=== PATIENT | male | born 1945 | race Caucasian/White ===

== ENCOUNTER → 2018-09-15 | Outpatient (CLI) | payer MEDICARE, BC ==
[~2018-09-15] MED LIST: FUROSEMIDE40 MG PO; HYDRALAZINE HCL25 MG PO; LIPITOR20 MG PO; LISINOPRIL10 MG PO; METFORMIN HCL500 MG PO; METOPROLOL TART25 MG PO; PROAIR HFA INH8.5 GM INH; QVAR7.3 G1 INH
--- NOTE | 2018-09-15 14:39 | Diagnostic Imaging Report ---
EXAM: Right upper quadrant abdominal ultrasound INDICATION: Abnormal LFTs. COMPARISON: None. TECHNIQUE: Transverse and longitudinal images of the right upper quadrant abdomen were obtained FINDINGS: Liver: Size: 16.6 cm in the right midclavicular line Appearance: Increased echogenicity, smooth contour Mass: No focal masses Gallbladder: No distention, pericholecystic fluid, wall thickening, stone, or reported sonographic Flaherty's sign. Gallbladder wall measures 0.4 cm. Bile Ducts: Intrahepatic Ducts: No dilatation Extrahepatic Ducts: Common bile duct measures 0.4 cm, no dilatation Pancreas: Visualized portions of the pancreatic head, neck and proximal body are normal. Right Kidney: The right kidney measures 10.2 cm without evidence of hydronephrosis or stone. There is a 2.2 x 2.5 x 2 cm well-circumscribed, homogeneous echogenic lesion within the lateral aspect of the kidney. Vessels: Aorta: Visualized portions are normal Inferior Vena Cava: Visualized portions are normal Main Portal Vein: 0.5 cm, normal size with hepatopetal flow. Hepatic vasculature: Right, middle, and left hepatic vein as well as hepatic arterial waveforms are unremarkable. Free Fluid: No ascites or pleural effusion IMPRESSION: Hepatomegaly with hepatic steatosis. 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 Suggest follow-up renal ultrasound in 6 months. Signed by: Dr. Jude Manzo MD on 09/15/2018 2:36 PM
== END ==
LOC: US 13:01
PROVIDERS: ATTEND Family Medicine
DX: R94.5 Abnormal results of liver function studies (principal); R16.0 Hepatomegaly, not elsewhere classified; K76.0 Fatty (change of) liver, not elsewhere classified
CPT/HCPCS: 76705; 93976

== ENCOUNTER 2021-04-30 15:56 | Inpatient (IN) | payer MEDICARE, BC ==
[~2021-04-30] VITALS: Ht 165.1 cm; Wt 60.1 kg
[2021-04-30] MEDS ORDERED: SODIUM CHLORIDE 0.9% 1000ML 1,000 ML ONE (16:37)
[2021-04-30] MEDS ORDERED: ACETAMINOPHEN 650 MG SUPP PR ONE (16:45)
[2021-04-30] MEDS ORDERED: SODIUM CHLORIDE 0.9% 1000ML 1,000 ML IV ONE (16:45)
[2021-04-30] MEDS ORDERED: ACETAMINOPHEN 325 MG SUPP PR ONE (16:45)
[2021-04-30 16:53] LABS: BASOPHILS % 0.2 % (0.0-1.0); EOSINOPHILS # (AUTO) 0.1 (0.0-0.4); EOSINOPHILS % 0.4 % (0.0-6.0); HEMATOCRIT 37.3 % (38.2-49.6); HEMOGLOBIN 11.2 g/dL (14.0-18.0); LYMPHOCYTES # (AUTO) 1.4 (1.0-3.2); LYMPHOCYTES % 9.7 % (18.0-39.1); MEAN CORPUSCULAR HEMOGLOBIN 27.2 pg (28-32); MEAN CORPUSCULAR VOLUME 90.5 fL (81-99); MONOCYTES # (AUTO) 0.7 (0.2-0.8); MONOCYTES % 4.9 % (4.4-11.3); NEUTROPHILS # (AUTO) 12.5 (2.1-6.9); NEUTROPHILS % 84.2 % (38.7-80.0); PLATELET COUNT 326 x10e3/uL (140-360); RED BLOOD COUNT 4.12 x10e6/uL (4.3-5.7); RED CELL DISTRIBUTION WIDTH 17.8 % (11.7-14.4)
[2021-04-30 17:02] LABS: CLARITY,URINE CLOUDY (CLEAR); COLOR,URINE YELLOW (YELLOW); INR 1.25; LEUKOCYTE ESTERASE ,URINE 2+ (NEGATIVE); NITRITE,URINE NEGATIVE (NEGATIVE); PROTEIN,URINE DIPSTICK 1+ (NEGATIVE); PROTHROMBIN TIME 16.7 seconds (11.9-14.5)
[2021-04-30 17:03] LABS: KETONES,URINE NEGATIVE (NEGATIVE); PARTIAL THROMBOPLASTIN TIME 42.4 seconds (23.8-35.5); URINE UROBILINOGEN 1 mg/dL (0.2 - 1)
[2021-04-30 17:07] LABS: BACTERIA,URINE MANY /HPF; EPITHELIAL CELLS,URINE FEW /LPF; WBC,URINE (MAN) 21-50 /HPF (0-5)
[2021-04-30 17:08] LABS: TRIPLE PHOSPHATE CRYSTAL,UR MANY (FEW)
[2021-04-30 17:11] LABS: ALBUMIN 3.3 g/dL (3.5-5.0); ALBUMIN/GLOBULIN RATIO 0.6 (0.8-2.0); ANION GAP 24.5 mmol/L (8-16); CREATININE, SERUM 1.15 mg/dL (0.72-1.25); POTASSIUM 4.5 mmol/L (3.5-5.1)
[2021-04-30 17:12] LABS: CALCIUM 10.4 mg/dL (8.4-10.2)
[2021-04-30] MEDS ORDERED: Vancomycin IV 1 GM in SODIUM CHLORIDE 0.9% 250ML 250 ML IV STA (17:12)
[2021-04-30] MEDS ORDERED: PIPERACILLIN/TAZO 4.5 GM 100 ML IV ONE (17:15)
[2021-04-30 17:17] LABS: CREATINE KINASE MB 2.9 ng/mL (0-5.0)
[2021-04-30] MEDS ORDERED: SODIUM CHLORIDE 0.9% 1000ML 1,000 ML IV SCH (17:45)
[2021-04-30] MEDS ORDERED: KETOROLAC TROMETHAMINE 30 MG/ML VIAL IV STA (18:05)
[2021-04-30] MEDS ORDERED: ACETAMINOPHEN 650 MG SUPP PR PRN (18:45)
[2021-04-30 22:00] VITALS: BP 91/52
[2021-04-30 22:01] VITALS: BP 91/52
[2021-04-30 22:28] VITALS: BP 90/49
[2021-04-30 22:47] VITALS: BP 123/92
[2021-04-30 23:19] VITALS: BP 87/52
[2021-04-30 23:47] VITALS: BP 92/51
[2021-05-01] VITALS (14 sets, daily range): BP systolic 102–129; BP diastolic 53–88
[2021-05-01] MEDS ORDERED: FUROSEMIDE INJ 10 MG/ML 4 ML VIAL IV ONE ×2 (09:00→10:30)
[2021-05-01 09:30] LABS: ABG HCO3 32 mmol/L (22-26); ABG PCO2 45 mmHg (35-45); ABG PH 7.47 (7.35-7.45); ABG PO2 49 mmHg (80-105); ABG TCO2 33
[2021-05-01] MEDS ORDERED: SODIUM CHLORIDE 0.45% 1,000 ML IV ONE (10:30)
[2021-05-01] MEDS: PIPERACILLIN/TAZOBACTAM 3.375 GM in SODIUM CHLORIDE 0.9% 50ML 50 ML IV SCH ×2 (13:45→21:02)
[2021-05-01] MEDS: METOPROLOL TARTRATE 25 MG TAB PO SCH (17:13)
[2021-05-01] MEDS: ENOXAPARIN SOD INJ 40 MG/0.4 ML SYR SC SCH (17:14)
[2021-05-01] MEDS ORDERED: OXYMETAZOLINE HCL 0.05% NAS 1 SPRAY BTL PRN (17:30)
[2021-05-01] MEDS ORDERED: SODIUM CHLORIDE 0.9% 100 ML ONE (20:20)
[2021-05-01] MEDS: ATORVASTATIN 40 MG TAB PO SCH (20:48)
[2021-05-02] VITALS (16 sets, daily range): BP systolic 102–128; BP diastolic 54–77
[2021-05-02 06:03] LABS: BASOPHILS % 0.2 % (0.0-1.0); EOSINOPHILS # (AUTO) 0.1 (0.0-0.4); EOSINOPHILS % 1.3 % (0.0-6.0); HEMATOCRIT 28.4 % (38.2-49.6); HEMOGLOBIN 8.3 g/dL (14.0-18.0); LYMPHOCYTES # (AUTO) 0.7 (1.0-3.2); LYMPHOCYTES % 6.6 % (18.0-39.1); MEAN CORPUSCULAR HGB CONC 29.2 g/dL (31-35); MEAN CORPUSCULAR VOLUME 92.5 fL (81-99); MONOCYTES # (AUTO) 0.5 (0.2-0.8); MONOCYTES % 4.5 % (4.4-11.3); NEUTROPHILS # (AUTO) 9.7 (2.1-6.9); NEUTROPHILS % 86.9 % (38.7-80.0); PLATELET COUNT 223 x10e3/uL (140-360); RED BLOOD COUNT 3.07 x10e6/uL (4.3-5.7); RED CELL DISTRIBUTION WIDTH 17.2 % (11.7-14.4)
[2021-05-02] MEDS: PIPERACILLIN/TAZOBACTAM 3.375 GM in SODIUM CHLORIDE 0.9% 50ML 50 ML IV SCH ×3 (06:03→22:46)
[2021-05-02 06:35] LABS: ALBUMIN 2.5 g/dL (3.5-5.0); ALBUMIN/GLOBULIN RATIO 0.6 (0.8-2.0); ANION GAP 13.8 mmol/L (8-16); CALCIUM 9.7 mg/dL (8.4-10.2); CREATININE, SERUM 0.72 mg/dL (0.72-1.25)
[2021-05-02 06:39] LABS: POTASSIUM 2.8 mmol/L (3.5-5.1)
[2021-05-02] MEDS: METOPROLOL TARTRATE 25 MG TAB PO SCH ×2 (10:21→18:04)
[2021-05-02] MEDS: BALSAM PERU/CASTOR OIL 60 GM OINT...G. TP SCH (10:22)
[2021-05-02] MEDS ORDERED: SODIUM CHLORIDE 0.45% 1,000 ML IV SCH (11:15)
[2021-05-02] MEDS ORDERED: POTASSIUM CHLORIDE 20MEQ/100ML 200 ML IV ONE (11:15)
[2021-05-02] MEDS: ENOXAPARIN SOD INJ 40 MG/0.4 ML SYR SC SCH (18:04)
[2021-05-02] MEDS ORDERED: DEXTROSE 5% 1,000 ML IV SCH (20:00)
[2021-05-02] MEDS: ATORVASTATIN 40 MG TAB PO SCH (21:17)
[2021-05-03] VITALS (10 sets, daily range): BP systolic 108–129; BP diastolic 64–81
[2021-05-03 05:38] LABS: BASOPHILS % 0.2 % (0.0-1.0); EOSINOPHILS # (AUTO) 0.3 (0.0-0.4); EOSINOPHILS % 3.3 % (0.0-6.0); HEMATOCRIT 26.3 % (38.2-49.6); HEMOGLOBIN 7.8 g/dL (14.0-18.0); LYMPHOCYTES # (AUTO) 1.1 (1.0-3.2); LYMPHOCYTES % 12.5 % (18.0-39.1); MEAN CORPUSCULAR HGB CONC 29.7 g/dL (31-35); MONOCYTES # (AUTO) 0.6 (0.2-0.8); MONOCYTES % 6.4 % (4.4-11.3); NEUTROPHILS # (AUTO) 6.6 (2.1-6.9); PLATELET COUNT 210 x10e3/uL (140-360); RED BLOOD COUNT 2.89 x10e6/uL (4.3-5.7); RED CELL DISTRIBUTION WIDTH 17.1 % (11.7-14.4)
[2021-05-03 05:57] LABS: ALBUMIN 2.3 g/dL (3.5-5.0); ALBUMIN/GLOBULIN RATIO 0.6 (0.8-2.0); ANION GAP 11.9 mmol/L (8-16); CREATININE, SERUM 0.66 mg/dL (0.72-1.25); MAGNESIUM 1.4 MG/DL (1.3-2.1)
[2021-05-03 06:04] LABS: POTASSIUM 2.9 mmol/L (3.5-5.1)
[2021-05-03] MEDS: PIPERACILLIN/TAZOBACTAM 3.375 GM in SODIUM CHLORIDE 0.9% 50ML 50 ML IV SCH ×3 (06:17→21:42)
[2021-05-03] MEDS: METOPROLOL TARTRATE 25 MG TAB PO SCH ×2 (08:53→18:04)
[2021-05-03] MEDS ORDERED: POTASSIUM CHLORIDE 20MEQ/100ML 300 ML IV ONE ×2 (09:15→12:30)
[2021-05-03] MEDS ORDERED: FUROSEMIDE INJ 10 MG/ML 4 ML VIAL IV NR (12:30)
[2021-05-03] MEDS: BALSAM PERU/CASTOR OIL 60 GM OINT...G. TP SCH (12:43)
[2021-05-03] MEDS ORDERED: MAGNESIUM SULFATE 2GM/50ML 100 ML IV ONE (13:30)
[2021-05-03] MEDS: ENOXAPARIN SOD INJ 40 MG/0.4 ML SYR SC SCH (18:04)
[2021-05-03] MEDS ORDERED: POTASSIUM CHLORIDE 20MEQ/100ML 100 ML IV ONE (18:30)
[2021-05-03] MEDS: ATORVASTATIN 40 MG TAB PO SCH (21:42)
[2021-05-04] VITALS (13 sets, daily range): BP systolic 103–116; BP diastolic 56–74
[2021-05-04 05:50] LABS: BASOPHILS % 0.3 % (0.0-1.0); EOSINOPHILS # (AUTO) 0.3 (0.0-0.4); EOSINOPHILS % 2.6 % (0.0-6.0); HEMATOCRIT 27.8 % (38.2-49.6); HEMOGLOBIN 8.2 g/dL (14.0-18.0); LYMPHOCYTES % 10.4 % (18.0-39.1); MEAN CORPUSCULAR HEMOGLOBIN 26.9 pg (28-32); MEAN CORPUSCULAR HGB CONC 29.5 g/dL (31-35); MEAN CORPUSCULAR VOLUME 91.1 fL (81-99); MONOCYTES # (AUTO) 0.6 (0.2-0.8); MONOCYTES % 6.8 % (4.4-11.3); NEUTROPHILS # (AUTO) 7.5 (2.1-6.9); NEUTROPHILS % 79.3 % (38.7-80.0); PLATELET COUNT 208 x10e3/uL (140-360); RED BLOOD COUNT 3.05 x10e6/uL (4.3-5.7); RED CELL DISTRIBUTION WIDTH 17.3 % (11.7-14.4)
[2021-05-04 06:22] LABS: ANION GAP 13.7 mmol/L (8-16); CALCIUM 9.1 mg/dL (8.4-10.2); CREATININE, SERUM 0.67 mg/dL (0.72-1.25); POTASSIUM 3.7 mmol/L (3.5-5.1)
[2021-05-04] MEDS: PIPERACILLIN/TAZOBACTAM 3.375 GM in SODIUM CHLORIDE 0.9% 50ML 50 ML IV SCH ×3 (06:37→21:24)
[2021-05-04] MEDS: POTASSIUM CHLORIDE 20 MEQ TAB CR PO SCH (08:24)
[2021-05-04] MEDS: BALSAM PERU/CASTOR OIL 60 GM OINT...G. TP SCH (08:26)
[2021-05-04] MEDS: METOPROLOL TARTRATE 25 MG TAB PO SCH ×2 (08:26→17:00)
[2021-05-04] MEDS: ENOXAPARIN SOD INJ 40 MG/0.4 ML SYR SC SCH (17:00)
[2021-05-04] MEDS: ATORVASTATIN 40 MG TAB PO SCH (21:13)
[2021-05-05] VITALS (7 sets, daily range): BP systolic 108–129; BP diastolic 65–81
[2021-05-05] MEDS: PIPERACILLIN/TAZOBACTAM 3.375 GM in SODIUM CHLORIDE 0.9% 50ML 50 ML IV SCH ×3 (06:27→21:42)
[2021-05-05 07:35] LABS: BASOPHILS % 0.2 % (0.0-1.0); EOSINOPHILS # (AUTO) 0.3 (0.0-0.4); EOSINOPHILS % 3.9 % (0.0-6.0); HEMOGLOBIN 8.1 g/dL (14.0-18.0); LYMPHOCYTES # (AUTO) 0.8 (1.0-3.2); LYMPHOCYTES % 9.6 % (18.0-39.1); MEAN CORPUSCULAR HEMOGLOBIN 26.7 pg (28-32); MEAN CORPUSCULAR HGB CONC 28.9 g/dL (31-35); MEAN CORPUSCULAR VOLUME 92.4 fL (81-99); MONOCYTES # (AUTO) 0.5 (0.2-0.8); MONOCYTES % 6.4 % (4.4-11.3); NEUTROPHILS # (AUTO) 6.7 (2.1-6.9); NEUTROPHILS % 79.3 % (38.7-80.0); PLATELET COUNT 212 x10e3/uL (140-360); RED BLOOD COUNT 3.03 x10e6/uL (4.3-5.7); RED CELL DISTRIBUTION WIDTH 17.2 % (11.7-14.4)
[2021-05-05 07:55] LABS: ALBUMIN 2.4 g/dL (3.5-5.0); ALBUMIN/GLOBULIN RATIO 0.6 (0.8-2.0); ANION GAP 12.8 mmol/L (8-16); CALCIUM 9.4 mg/dL (8.4-10.2); CREATININE, SERUM 0.67 mg/dL (0.72-1.25); POTASSIUM 3.8 mmol/L (3.5-5.1)
[2021-05-05] MEDS: METOPROLOL TARTRATE 25 MG TAB PO SCH ×2 (08:36→16:25)
[2021-05-05] MEDS: POTASSIUM CHLORIDE 20 MEQ TAB CR PO SCH (08:36)
[2021-05-05] MEDS: ENOXAPARIN SOD INJ 40 MG/0.4 ML SYR SC SCH (16:25)
[2021-05-05] MEDS: BALSAM PERU/CASTOR OIL 60 GM OINT...G. TP SCH (17:31)
[2021-05-05] MEDS: ATORVASTATIN 40 MG TAB PO SCH (21:00)
[2021-05-06] VITALS (8 sets, daily range): BP systolic 107–123; BP diastolic 59–78
[2021-05-06] MEDS: PIPERACILLIN/TAZOBACTAM 3.375 GM in SODIUM CHLORIDE 0.9% 50ML 50 ML IV SCH ×3 (05:33→22:58)
[2021-05-06] MEDS: POTASSIUM CHLORIDE 20 MEQ TAB CR PO SCH (09:20)
[2021-05-06] MEDS: METOPROLOL TARTRATE 25 MG TAB PO SCH ×2 (09:20→17:03)
[2021-05-06] MEDS: BALSAM PERU/CASTOR OIL 60 GM OINT...G. TP SCH (10:00)
[2021-05-06] MEDS: ENOXAPARIN SOD INJ 40 MG/0.4 ML SYR SC SCH (17:03)
[2021-05-06] MEDS: ATORVASTATIN 40 MG TAB PO SCH (20:12)
[2021-05-07] VITALS (8 sets, daily range): BP systolic 116–142; BP diastolic 68–90
[2021-05-07] MEDS: PIPERACILLIN/TAZOBACTAM 3.375 GM in SODIUM CHLORIDE 0.9% 50ML 50 ML IV SCH ×3 (06:02→21:54)
[2021-05-07] MEDS: POTASSIUM CHLORIDE 20 MEQ TAB CR PO SCH (08:49)
[2021-05-07] MEDS: METOPROLOL TARTRATE 25 MG TAB PO SCH ×2 (09:14→16:57)
[2021-05-07] MEDS: BALSAM PERU/CASTOR OIL 60 GM OINT...G. TP SCH (13:21)
[2021-05-07] MEDS: ENOXAPARIN SOD INJ 40 MG/0.4 ML SYR SC SCH (16:57)
[2021-05-07] MEDS: ATORVASTATIN 40 MG TAB PO SCH (20:44)
[2021-05-08] VITALS (8 sets, daily range): BP systolic 116–144; BP diastolic 66–80
[2021-05-08 05:04] LABS: BASOPHILS % 0.3 % (0.0-1.0); EOSINOPHILS # (AUTO) 0.3 (0.0-0.4); EOSINOPHILS % 4.2 % (0.0-6.0); HEMATOCRIT 27.2 % (38.2-49.6); HEMOGLOBIN 7.8 g/dL (14.0-18.0); LYMPHOCYTES # (AUTO) 0.9 (1.0-3.2); MEAN CORPUSCULAR HEMOGLOBIN 26.3 pg (28-32); MEAN CORPUSCULAR HGB CONC 28.7 g/dL (31-35); MEAN CORPUSCULAR VOLUME 91.6 fL (81-99); MONOCYTES # (AUTO) 0.5 (0.2-0.8); MONOCYTES % 7.2 % (4.4-11.3); NEUTROPHILS # (AUTO) 4.8 (2.1-6.9); NEUTROPHILS % 72.3 % (38.7-80.0); PLATELET COUNT 251 x10e3/uL (140-360); RED BLOOD COUNT 2.97 x10e6/uL (4.3-5.7)
[2021-05-08] MEDS: PIPERACILLIN/TAZOBACTAM 3.375 GM in SODIUM CHLORIDE 0.9% 50ML 50 ML IV SCH ×3 (05:07→22:39)
[2021-05-08 05:31] LABS: ANION GAP 13.1 mmol/L (8-16); CALCIUM 9.1 mg/dL (8.4-10.2); CREATININE, SERUM 0.56 mg/dL (0.72-1.25); POTASSIUM 4.1 mmol/L (3.5-5.1)
[2021-05-08] MEDS: POTASSIUM CHLORIDE 20 MEQ TAB CR PO SCH (08:19)
[2021-05-08] MEDS: METOPROLOL TARTRATE 25 MG TAB PO SCH ×2 (08:19→17:00)
[2021-05-08] MEDS: BALSAM PERU/CASTOR OIL 60 GM OINT...G. TP SCH (08:20)
[2021-05-08] MEDS ORDERED: MIDAZOLAM HCL 2 MG/2 ML VIAL ONE (12:47)
[2021-05-08] MEDS ORDERED: FENTANYL CITRATE/PF 100MCG/2 ML INJ ONE (12:47)
[2021-05-08] MEDS ORDERED: BENZOCAINE/TETRACAINE/BUTAMBEN AERO SPRAY 56 GM CAN ONE (18:52)
[2021-05-08] MEDS ORDERED: Morphine 2mg Syringe 2 MG/ML SYR IV PRN (20:15)
[2021-05-08] MEDS: ATORVASTATIN 40 MG TAB PO SCH (21:00)
[2021-05-09] VITALS: BP 127/78
[2021-05-09 04:00] VITALS: BP 141/72
[2021-05-09] MEDS: PIPERACILLIN/TAZOBACTAM 3.375 GM in SODIUM CHLORIDE 0.9% 50ML 50 ML IV SCH ×2 (06:28→14:00)
[2021-05-09] MEDS ORDERED: SODIUM CHLORIDE 0.9% 1000ML 1,000 ML IV SCH (07:30)
[2021-05-09 08:00] VITALS: BP 156/83
[2021-05-09 08:30] VITALS: BP 156/83
[2021-05-09] MEDS: METOPROLOL TARTRATE 25 MG TAB PO SCH (09:00)
[2021-05-09] MEDS: POTASSIUM CHLORIDE 20 MEQ TAB CR PO SCH (09:00)
[2021-05-09] MEDS: BALSAM PERU/CASTOR OIL 60 GM OINT...G. TP SCH (09:00)
[2021-05-09 12:00] VITALS: BP 153/71
== END 2021-05-09 15:26 | DRG 871 ==
LOC: ER 16:00 → ERHOLD 18:09 → ICU 22:00 → MED/SURG2 05-04 15:24
PROC: 02HV33Z Insertion of Infusion Device into Superior Vena Cava, Percutaneous Approach (ICD-10-PCS; 2021-05-01)
PROC: 5A0935A Assistance with Respiratory Ventilation, Less than 24 Consecutive Hours, High Flow/Velocity Cannula (ICD-10-PCS; 2021-05-01)
PROC: 0DH63UZ Insertion of Feeding Device into Stomach, Percutaneous Approach (ICD-10-PCS; principal; 2021-05-08 16:30)
DX: A41.9 Sepsis, unspecified organism (principal); G93.41 Metabolic encephalopathy; J69.0 Pneumonitis due to inhalation of food and vomit; J15.6 Pneumonia due to other Gram-negative bacteria; J96.01 Acute respiratory failure with hypoxia; N39.0 Urinary tract infection, site not specified; N17.9 Acute kidney failure, unspecified; E87.0 Hyperosmolality and hypernatremia; E44.0 Moderate protein-calorie malnutrition; I50.22 Chronic systolic (congestive) heart failure; I48.91 Unspecified atrial fibrillation; F02.80 Dementia in other diseases classified elsewhere, unspecified severity, without behavioral disturbance, psychotic disturbance, mood disturbance, and anxiety; E11.42 Type 2 diabetes mellitus with diabetic polyneuropathy; G20 Parkinson's disease; R13.12 Dysphagia, oropharyngeal phase; K20.90 Esophagitis, unspecified without bleeding; K44.9 Diaphragmatic hernia without obstruction or gangrene; K29.70 Gastritis, unspecified, without bleeding; Z91.041 Radiographic dye allergy status; Z20.822 Contact with and (suspected) exposure to COVID-19; Z86.73 Personal history of transient ischemic attack (TIA), and cerebral infarction without residual deficits; I25.10 Atherosclerotic heart disease of native coronary artery without angina pectoris; E87.6 Hypokalemia; D64.9 Anemia, unspecified; I11.0 Hypertensive heart disease with heart failure; D17.1 Benign lipomatous neoplasm of skin and subcutaneous tissue of trunk; E83.42 Hypomagnesemia; D63.8 Anemia in other chronic diseases classified elsewhere; I35.0 Nonrheumatic aortic (valve) stenosis; Z79.84 Long term (current) use of oral hypoglycemic drugs; N18.30 Chronic kidney disease, stage 3 unspecified; Z68.22 Body mass index [BMI] 22.0-22.9, adult; E03.9 Hypothyroidism, unspecified; Z98.61 Coronary angioplasty status
CPT/HCPCS: 36415; 36569; 36600; 43246; 71045; 71046; 74230; 80048; 80053; 81001; 82550; 82553; 82805; 82948; 83605; 83735; 83880; 84484; 85025; 85610; 85730; 87040; 87086; 93005; 93306; 94640; 94799; 99251; 99284; J1650; J1885; J1940; J2250; J2543; J3010; J3370; J3475; J3480; J7030; J7050; J7070; U0002

== ENCOUNTER 2021-05-13 08:25 | Emergency (ER) | payer MEDICARE, BC ==
[~2021-05-13] VITALS: Ht 165.1 cm; Wt 59.9 kg
[2021-05-13] MEDS ORDERED: SODIUM CHLORIDE 0.9% 500ML 500 ML IV ONE (09:00)
[2021-05-13 09:24] LABS: BASOPHILS % 0.2 % (0.0-1.0); EOSINOPHILS # (AUTO) 0.3 (0.0-0.4); EOSINOPHILS % 2.2 % (0.0-6.0); HEMATOCRIT 28.9 % (38.2-49.6); HEMOGLOBIN 8.6 g/dL (14.0-18.0); LYMPHOCYTES # (AUTO) 1.7 (1.0-3.2); LYMPHOCYTES % 14.5 % (18.0-39.1); MEAN CORPUSCULAR HGB CONC 29.8 g/dL (31-35); MEAN CORPUSCULAR VOLUME 90.9 fL (81-99); MONOCYTES # (AUTO) 0.7 (0.2-0.8); MONOCYTES % 6.2 % (4.4-11.3); NEUTROPHILS # (AUTO) 8.9 (2.1-6.9); NEUTROPHILS % 76.3 % (38.7-80.0); PLATELET COUNT 350 x10e3/uL (140-360); RED BLOOD COUNT 3.18 x10e6/uL (4.3-5.7); RED CELL DISTRIBUTION WIDTH 19.5 % (11.7-14.4)
[2021-05-13] MEDS ORDERED: Vancomycin IV 1 GM in SODIUM CHLORIDE 0.9% 250ML 250 ML IV ONE (09:30)
[2021-05-13] MEDS ORDERED: PIPERACILLIN/TAZOBACTAM 3.375 GM in SODIUM CHLORIDE 0.9% 50ML 50 ML IV ONE (09:30)
[2021-05-13 09:41] LABS: CLARITY,URINE CLEAR (CLEAR); COLOR,URINE YELLOW (YELLOW); KETONES,URINE NEGATIVE (NEGATIVE); LEUKOCYTE ESTERASE ,URINE TRACE (NEGATIVE); NITRITE,URINE NEGATIVE (NEGATIVE); PROTEIN,URINE DIPSTICK 1+ (NEGATIVE)
[2021-05-13 09:42] LABS: URINE UROBILINOGEN >=8 mg/dL (0.2 - 1)
[2021-05-13 09:50] LABS: INR 1.26; PROTHROMBIN TIME 16.8 seconds (11.9-14.5)
[2021-05-13 09:51] LABS: PARTIAL THROMBOPLASTIN TIME 41.3 seconds (23.8-35.5)
[2021-05-13 09:52] LABS: ALBUMIN 2.5 g/dL (3.5-5.0); ALBUMIN/GLOBULIN RATIO 0.5 (0.8-2.0); ANION GAP 13.1 mmol/L (8-16); CALCIUM 10.2 mg/dL (8.4-10.2); CREATININE, SERUM 0.75 mg/dL (0.72-1.25); MAGNESIUM 1.9 MG/DL (1.3-2.1); POTASSIUM 4.1 mmol/L (3.5-5.1)
[2021-05-13 09:53] LABS: CREATINE KINASE MB 0.9 ng/mL (0-5.0)
[2021-05-13 10:02] LABS: BACTERIA,URINE FEW /HPF; EPITHELIAL CELLS,URINE RARE /LPF; RBC,URINE 0-5 /HPF (0-5)
== END 2021-05-13 13:58 | disposition short-term general hospital (02) ==
LOC: ER 08:28
DX: J69.0 Pneumonitis due to inhalation of food and vomit (principal); I62.01 Nontraumatic acute subdural hemorrhage; I62.03 Nontraumatic chronic subdural hemorrhage; I10 Essential (primary) hypertension; I48.91 Unspecified atrial fibrillation; E03.9 Hypothyroidism, unspecified; I25.10 Atherosclerotic heart disease of native coronary artery without angina pectoris; G20 Parkinson's disease; F03.90 Unspecified dementia, unspecified severity, without behavioral disturbance, psychotic disturbance, mood disturbance, and anxiety; Z91.041 Radiographic dye allergy status; Z20.822 Contact with and (suspected) exposure to COVID-19; Z79.02 Long term (current) use of antithrombotics/antiplatelets; Z79.84 Long term (current) use of oral hypoglycemic drugs; Z79.899 Other long term (current) drug therapy
CPT/HCPCS: 36415; 70450; 71045; 80053; 81001; 82550; 82553; 83605; 83735; 83880; 84484; 85025; 85610; 85730; 86850; 86900; 87040; 87086; 93005; 99251; 99285; J2543; J3370; J7040; J7050; U0002

== ENCOUNTER 2021-06-02 19:08 | Inpatient (IN) | payer MEDICARE, BC ==
[~2021-06-02] VITALS: Ht 165.1 cm; Wt 63.4 kg
[2021-06-02] MEDS ORDERED: SODIUM CHLORIDE 0.9% 1000ML 1,000 ML IV STA ×2 (19:14→21:29)
[2021-06-02] MEDS ORDERED: CEFTRIAXONE 1 GM in SODIUM CHLORIDE 0.9% 50ML 50 ML IV STA (19:14)
[2021-06-02] MEDS ORDERED: DILTIAZEM HCL 5 MG/ML 5 ML VIAL IV STA ×2 (19:35→23:09)
[2021-06-02 19:39] LABS: CLARITY,URINE SL CLOUDY (CLEAR); COLOR,URINE STRAW (YELLOW); KETONES,URINE NEGATIVE (NEGATIVE); LEUKOCYTE ESTERASE ,URINE NEGATIVE (NEGATIVE); NITRITE,URINE NEGATIVE (NEGATIVE); PROTEIN,URINE DIPSTICK TRACE (NEGATIVE); URINE UROBILINOGEN 2 mg/dL (0.2 - 1)
[2021-06-02 19:50] LABS: BACTERIA,URINE MODERATE /HPF; WBC,URINE (MAN) 0-5 /HPF (0-5)
[2021-06-02 19:51] LABS: BASOPHILS % 0.3 % (0.0-1.0); EOSINOPHILS # (AUTO) 0.2 (0.0-0.4); EOSINOPHILS % 1.2 % (0.0-6.0); HEMATOCRIT 30.9 % (38.2-49.6); LYMPHOCYTES # (AUTO) 1.1 (1.0-3.2); LYMPHOCYTES % 8.3 % (18.0-39.1); MEAN CORPUSCULAR HEMOGLOBIN 26.4 pg (28-32); MEAN CORPUSCULAR HGB CONC 29.1 g/dL (31-35); MEAN CORPUSCULAR VOLUME 90.6 fL (81-99); MONOCYTES # (AUTO) 0.9 (0.2-0.8); MONOCYTES % 7.4 % (4.4-11.3); NEUTROPHILS # (AUTO) 10.2 (2.1-6.9); NEUTROPHILS % 80.5 % (38.7-80.0); PLATELET COUNT 362 x10e3/uL (140-360); RED BLOOD COUNT 3.41 x10e6/uL (4.3-5.7); RED CELL DISTRIBUTION WIDTH 21.5 % (11.7-14.4)
[2021-06-02] MEDS ORDERED: ACETAMINOPHEN 650 MG SUPP PR ONE ×2 (19:54→20:00)
[2021-06-02 20:00] LABS: INR 1.33; PROTHROMBIN TIME 17.4 seconds (11.9-14.5)
[2021-06-02 20:01] LABS: PARTIAL THROMBOPLASTIN TIME 47.9 seconds (23.8-35.5)
[2021-06-02 20:16] LABS: B-TYPE NATRIURETIC PEPTIDE2 106.3 pg/mL (0-100)
[2021-06-02 20:53] LABS: ALBUMIN 1.7 g/dL (3.5-5.0); ALBUMIN/GLOBULIN RATIO 0.4 (0.8-2.0); ANION GAP 16.1 mmol/L (8-16); CALCIUM 8.7 mg/dL (8.4-10.2); CREATININE, SERUM 0.64 mg/dL (0.72-1.25); POTASSIUM 4.1 mmol/L (3.5-5.1)
[2021-06-02 20:59] LABS: CREATINE KINASE MB 1.1 ng/mL (0-5.0)
[2021-06-02] MEDS ORDERED: KETOROLAC TROMETHAMINE 30 MG/ML VIAL IV STA (21:30)
[2021-06-02] MEDS ORDERED: DILTIAZEM HCL VIAL 5 ML ONE (22:51)
[2021-06-02] MEDS: SODIUM CHLORIDE 0.9% 1000ML 1,000 ML IV SCH (23:41)
[2021-06-03] VITALS (9 sets, daily range): BP systolic 90–133; BP diastolic 57–101
[2021-06-03] MEDS: SODIUM CHLORIDE 0.9% 1000ML 1,000 ML IV SCH ×3 (06:34→23:30)
[2021-06-03 07:19] LABS: BASOPHILS % 0.4 % (0.0-1.0); EOSINOPHILS # (AUTO) 0.1 (0.0-0.4); HEMATOCRIT 26.7 % (38.2-49.6); HEMOGLOBIN 7.8 g/dL (14.0-18.0); LYMPHOCYTES # (AUTO) 1.3 (1.0-3.2); LYMPHOCYTES % 12.8 % (18.0-39.1); MEAN CORPUSCULAR HEMOGLOBIN 26.6 pg (28-32); MEAN CORPUSCULAR HGB CONC 29.2 g/dL (31-35); MEAN CORPUSCULAR VOLUME 91.1 fL (81-99); MONOCYTES # (AUTO) 0.8 (0.2-0.8); MONOCYTES % 7.8 % (4.4-11.3); NEUTROPHILS # (AUTO) 7.4 (2.1-6.9); NEUTROPHILS % 74.3 % (38.7-80.0); PLATELET COUNT 277 x10e3/uL (140-360); RED BLOOD COUNT 2.93 x10e6/uL (4.3-5.7); RED CELL DISTRIBUTION WIDTH 21.1 % (11.7-14.4)
[2021-06-03 07:38] LABS: ANION GAP 13.5 mmol/L (8-16); CREATININE, SERUM 0.57 mg/dL (0.72-1.25); POTASSIUM 4.5 mmol/L (3.5-5.1)
[2021-06-03 08:03] LABS: CREATINE KINASE MB 1.3 ng/mL (0-5.0)
[2021-06-03] MEDS ORDERED: FOLIC ACID0.4 MG PO (14:16)
[2021-06-03] MEDS ORDERED: ACETAMINOPHEN325 M1 PO (14:16)
[2021-06-03] MEDS ORDERED: FLOMAX0.4 MG PO (14:16)
[2021-06-03] MEDS ORDERED: VITAMIN B-1100 M1 PO (14:28)
[2021-06-03] MEDS ORDERED: SENNA8.6 MG PO (14:28)
[2021-06-03] MEDS ORDERED: ARICEPT10 MG PO (14:28)
[2021-06-03] MEDS ORDERED: LOSARTAN POTASS25 MG PO (14:28)
[2021-06-03] MEDS ORDERED: MULTI-VITAMIN1 EACH PO (14:28)
[2021-06-03] MEDS ORDERED: TYLENOL325 MG PO (14:28)
[2021-06-03] MEDS ORDERED: REMERON15 MG PO (14:28)
[2021-06-03] MEDS ORDERED: SYMBICORT 80-10.2 GM INH (14:28)
[2021-06-03] MEDS ORDERED: VITAMIN B-121000 MCG PO (14:28)
[2021-06-03] MEDS ORDERED: REFRESH PLUS1 EACH (14:28)
[2021-06-03 15:20] LABS: CREATINE KINASE MB 2.1 ng/mL (0-5.0)
[2021-06-03] MEDS ORDERED: JEVITY237 ML (19:38)
[2021-06-03] MEDS ORDERED: SODIUM CHLORIDE 0.9% 50ML 50 ML ONE (20:45)
[2021-06-03] MEDS: ACETAMINOPHEN 325 MG TAB PO PRN (20:45)
[2021-06-03] MEDS ORDERED: CEFTRIAXONE 1 GM VIAL IM SCH (22:00)
[2021-06-04] VITALS (9 sets, daily range): BP systolic 100–120; BP diastolic 53–70
[2021-06-04] MEDS ORDERED: GLUCERNA 1.5 C237 ML (01:18)
[2021-06-04] MEDS ORDERED: NON-FORMULARY MEDICATION (Carboxymethylcellulose Sodium (Refresh Plus) 1 DROP) SCH (06:00)
[2021-06-04] MEDS: BUDESONIDE/FORMOTEROL FUMARATE 80/4.5MCG 6.9 GM INH AEROSOL IH SCH ×2 (06:28→17:24)
[2021-06-04] MEDS: SODIUM CHLORIDE 0.9% 1000ML 1,000 ML IV SCH ×3 (08:36→23:52)
[2021-06-04] MEDS: HYDRALAZINE HCL 25 MG TAB PO SCH ×3 (08:38→23:55)
[2021-06-04] MEDS: METOPROLOL TARTRATE 25 MG TAB PO SCH ×2 (08:39→17:00)
[2021-06-04] MEDS: LOSARTAN POTASSIUM 25 MG TAB PO SCH (08:39)
[2021-06-04] MEDS: MULTIVITAMINS/MINERALS TAB PO SCH (08:40)
[2021-06-04] MEDS: TAMSULOSIN HCL 0.4 MG CAP PO SCH (08:40)
[2021-06-04] MEDS: SENNOSIDES 8.6 MG TAB PO SCH ×2 (08:40→17:03)
[2021-06-04] MEDS: THIAMINE HCL 100 MG TAB PO SCH (08:40)
[2021-06-04] MEDS: CYANOCOBALAMIN 1,000 MCG TAB PO SCH (08:40)
[2021-06-04] MEDS: FOLIC ACID 1 MG TAB PO SCH (08:40)
[2021-06-04] MEDS: ARTIFICIAL TEARS (OPTH) 15 ML BTL OP SCH ×2 (13:46→23:51)
[2021-06-04] MEDS: PIPERACILLIN/TAZOBACTAM 3.375 GM in SODIUM CHLORIDE 0.9% 50ML 50 ML IV SCH ×2 (17:21→23:53)
[2021-06-04] MEDS ORDERED: METOPROLOL TARTRATE INJ 1 MG/ML VIAL IV ONE (21:00)
[2021-06-04] MEDS: MIRTAZAPINE 15 MG TAB PO SCH (22:01)
[2021-06-04] MEDS: DONEPEZIL HCL 5 MG TAB PO SCH (22:01)
[2021-06-05] VITALS (9 sets, daily range): BP systolic 111–136; BP diastolic 61–76
[2021-06-05] MEDS: PIPERACILLIN/TAZOBACTAM 3.375 GM in SODIUM CHLORIDE 0.9% 50ML 50 ML IV SCH ×3 (05:59→17:38)
[2021-06-05] MEDS: ARTIFICIAL TEARS (OPTH) 15 ML BTL OP SCH ×3 (05:59→21:58)
[2021-06-05] MEDS: SODIUM CHLORIDE 0.9% 1000ML 1,000 ML IV SCH ×2 (09:07→16:23)
[2021-06-05] MEDS: BUDESONIDE/FORMOTEROL FUMARATE 80/4.5MCG 6.9 GM INH AEROSOL IH SCH ×2 (09:07→17:37)
[2021-06-05] MEDS: MULTIVITAMINS/MINERALS TAB PO SCH (09:08)
[2021-06-05] MEDS: LOSARTAN POTASSIUM 25 MG TAB PO SCH (09:08)
[2021-06-05] MEDS: METOPROLOL TARTRATE 25 MG TAB PO SCH ×2 (09:08→17:38)
[2021-06-05] MEDS: FOLIC ACID 1 MG TAB PO SCH (09:08)
[2021-06-05] MEDS: TAMSULOSIN HCL 0.4 MG CAP PO SCH (09:08)
[2021-06-05] MEDS: HYDRALAZINE HCL 25 MG TAB PO SCH ×3 (09:08→21:58)
[2021-06-05] MEDS: COLLAGENASE 5 GM TUBE TOP SCH (09:09)
[2021-06-05] MEDS: BALSAM PERU/CASTOR OIL 60 GM OINT...G. TP SCH (09:09)
[2021-06-05] MEDS: SENNOSIDES 8.6 MG TAB PO SCH ×2 (09:09→17:38)
[2021-06-05] MEDS: THIAMINE HCL 100 MG TAB PO SCH (09:09)
[2021-06-05] MEDS: CYANOCOBALAMIN 1,000 MCG TAB PO SCH (09:09)
[2021-06-05] MEDS: AZITHROMYCIN 250 MG TAB PO SCH (21:57)
[2021-06-05] MEDS: DONEPEZIL HCL 5 MG TAB PO SCH (21:58)
[2021-06-05] MEDS: MIRTAZAPINE 15 MG TAB PO SCH (21:58)
[2021-06-06] VITALS (8 sets, daily range): BP systolic 86–143; BP diastolic 54–106
[2021-06-06] MEDS: SODIUM CHLORIDE 0.9% 1000ML 1,000 ML IV SCH ×2 (01:10→08:32)
[2021-06-06] MEDS: PIPERACILLIN/TAZOBACTAM 3.375 GM in SODIUM CHLORIDE 0.9% 50ML 50 ML IV SCH ×4 (01:11→17:11)
[2021-06-06] MEDS: ARTIFICIAL TEARS (OPTH) 15 ML BTL OP SCH ×3 (05:53→21:47)
[2021-06-06] MEDS: TAMSULOSIN HCL 0.4 MG CAP PO SCH (08:32)
[2021-06-06] MEDS: FOLIC ACID 1 MG TAB PO SCH (08:32)
[2021-06-06] MEDS: CYANOCOBALAMIN 1,000 MCG TAB PO SCH (08:32)
[2021-06-06] MEDS: SENNOSIDES 8.6 MG TAB PO SCH ×2 (08:32→17:10)
[2021-06-06] MEDS: HYDRALAZINE HCL 25 MG TAB PO SCH ×3 (08:32→21:46)
[2021-06-06] MEDS: MULTIVITAMINS/MINERALS TAB PO SCH (08:32)
[2021-06-06] MEDS: LOSARTAN POTASSIUM 25 MG TAB PO SCH (08:32)
[2021-06-06] MEDS: BALSAM PERU/CASTOR OIL 60 GM OINT...G. TP SCH (08:33)
[2021-06-06] MEDS: METOPROLOL TARTRATE 25 MG TAB PO SCH ×2 (08:34→17:11)
[2021-06-06] MEDS: THIAMINE HCL 100 MG TAB PO SCH (08:35)
[2021-06-06] MEDS: COLLAGENASE 5 GM TUBE TOP SCH (09:00)
[2021-06-06] MEDS: BUDESONIDE/FORMOTEROL FUMARATE 80/4.5MCG 6.9 GM INH AEROSOL IH SCH ×2 (11:37→21:47)
[2021-06-06] MEDS: MIRTAZAPINE 15 MG TAB PO SCH (21:47)
[2021-06-06] MEDS: AZITHROMYCIN 250 MG TAB PO SCH (21:47)
[2021-06-06] MEDS: DONEPEZIL HCL 5 MG TAB PO SCH (21:47)
[2021-06-07] VITALS (8 sets, daily range): BP systolic 88–133; BP diastolic 58–79
[2021-06-07] MEDS: PIPERACILLIN/TAZOBACTAM 3.375 GM in SODIUM CHLORIDE 0.9% 50ML 50 ML IV SCH ×5 (00:26→23:36)
[2021-06-07] MEDS: BUDESONIDE/FORMOTEROL FUMARATE 80/4.5MCG 6.9 GM INH AEROSOL IH SCH ×2 (06:52→19:58)
[2021-06-07] MEDS: ARTIFICIAL TEARS (OPTH) 15 ML BTL OP SCH ×3 (06:54→22:16)
[2021-06-07] MEDS: TAMSULOSIN HCL 0.4 MG CAP PO SCH (11:14)
[2021-06-07] MEDS: LOSARTAN POTASSIUM 25 MG TAB PO SCH (11:14)
[2021-06-07] MEDS: FOLIC ACID 1 MG TAB PO SCH (11:14)
[2021-06-07] MEDS: CYANOCOBALAMIN 1,000 MCG TAB PO SCH (11:15)
[2021-06-07] MEDS: SENNOSIDES 8.6 MG TAB PO SCH ×2 (11:15→17:31)
[2021-06-07] MEDS: MULTIVITAMINS/MINERALS TAB PO SCH (11:15)
[2021-06-07] MEDS: METOPROLOL TARTRATE 25 MG TAB PO SCH ×2 (11:15→17:32)
[2021-06-07] MEDS: BALSAM PERU/CASTOR OIL 60 GM OINT...G. TP SCH (11:15)
[2021-06-07] MEDS: COLLAGENASE 5 GM TUBE TOP SCH (11:15)
[2021-06-07] MEDS: HYDRALAZINE HCL 25 MG TAB PO SCH ×3 (11:16→20:43)
[2021-06-07] MEDS: THIAMINE HCL 100 MG TAB PO SCH (11:16)
[2021-06-07 15:33] LABS: BASOPHILS % 0.2 % (0.0-1.0); EOSINOPHILS # (AUTO) 0.3 (0.0-0.4); EOSINOPHILS % 2.7 % (0.0-6.0); HEMATOCRIT 23.7 % (38.2-49.6); LYMPHOCYTES # (AUTO) 0.9 (1.0-3.2); MEAN CORPUSCULAR HEMOGLOBIN 26.5 pg (28-32); MEAN CORPUSCULAR HGB CONC 29.5 g/dL (31-35); MEAN CORPUSCULAR VOLUME 89.8 fL (81-99); MONOCYTES # (AUTO) 0.5 (0.2-0.8); MONOCYTES % 5.2 % (4.4-11.3); NEUTROPHILS # (AUTO) 7.9 (2.1-6.9); NEUTROPHILS % 75.8 % (38.7-80.0); PLATELET COUNT 372 x10e3/uL (140-360); RED BLOOD COUNT 2.64 x10e6/uL (4.3-5.7); RED CELL DISTRIBUTION WIDTH 21.2 % (11.7-14.4)
[2021-06-07 15:57] LABS: ALBUMIN 1.5 g/dL (3.5-5.0); ALBUMIN/GLOBULIN RATIO 0.4 (0.8-2.0); ANION GAP 12.2 mmol/L (8-16); CALCIUM 8.6 mg/dL (8.4-10.2); CREATININE, SERUM 0.49 mg/dL (0.72-1.25); POTASSIUM 4.2 mmol/L (3.5-5.1)
[2021-06-07 16:31] LABS: BAND NEUTROPHILS % (MANUAL) 1 %; EOSINOPHILS % (MANUAL) 2 % (0-7); LYMPHOCYTES % (MANUAL) 12 % (19-48); METAMYELOCYTES % (MANUAL) 2 % (0-0); MONOCYTES % (MANUAL) 9 % (3.4-9.0); NEUTROPHILS % (MANUAL) 73 % (40-74); PROMYELOCYTES % (MANUAL) 1 % (0-0)
[2021-06-07 16:33] LABS: PLATELET ESTIMATE ADEQUATE; PLATELET MORPHOLOGY COMMENT NORMAL
[2021-06-07 16:34] LABS: RBC MORPHOLOGY COMMENT NORMAL
[2021-06-07 16:36] LABS: HYPOCHROMASIA SLIGHT
[2021-06-07] MEDS: ACETAMINOPHEN 325 MG TAB PO PRN (19:35)
[2021-06-07] MEDS: DONEPEZIL HCL 5 MG TAB PO SCH (20:43)
[2021-06-07] MEDS: MIRTAZAPINE 15 MG TAB PO SCH (20:43)
[2021-06-08] VITALS (7 sets, daily range): BP systolic 100–142; BP diastolic 60–81
[2021-06-08] MEDS: PIPERACILLIN/TAZOBACTAM 3.375 GM in SODIUM CHLORIDE 0.9% 50ML 50 ML IV SCH ×3 (05:17→18:17)
[2021-06-08] MEDS: ARTIFICIAL TEARS (OPTH) 15 ML BTL OP SCH ×3 (05:17→21:23)
[2021-06-08] MEDS: FOLIC ACID 1 MG TAB PO SCH (09:21)
[2021-06-08] MEDS: TAMSULOSIN HCL 0.4 MG CAP PO SCH (09:21)
[2021-06-08] MEDS: CYANOCOBALAMIN 1,000 MCG TAB PO SCH (09:22)
[2021-06-08] MEDS: MULTIVITAMINS/MINERALS TAB PO SCH (09:22)
[2021-06-08] MEDS: THIAMINE HCL 100 MG TAB PO SCH (09:22)
[2021-06-08] MEDS: COLLAGENASE 5 GM TUBE TOP SCH (09:22)
[2021-06-08] MEDS: SENNOSIDES 8.6 MG TAB PO SCH ×2 (09:22→18:14)
[2021-06-08] MEDS: BALSAM PERU/CASTOR OIL 60 GM OINT...G. TP SCH (09:22)
[2021-06-08] MEDS: METOPROLOL TARTRATE 25 MG TAB PO SCH ×2 (09:24→17:00)
[2021-06-08] MEDS: HYDRALAZINE HCL 25 MG TAB PO SCH ×3 (09:24→20:53)
[2021-06-08] MEDS: LOSARTAN POTASSIUM 25 MG TAB PO SCH (09:24)
[2021-06-08] MEDS ORDERED: ACETAMINOPHEN 325 MG TAB PO STA (10:42)
[2021-06-08] MEDS ORDERED: DIPHENHYDRAMINE HCL INJ 50 MG/ML VIAL IV ONE (10:45)
[2021-06-08] MEDS ORDERED: SODIUM CHLORIDE 0.9% 250ML 250 ML IV ONE (10:45)
[2021-06-08] MEDS: FUROSEMIDE INJ 10 MG/ML 2 ML VIAL IV PRN ×2 (18:00→18:17)
[2021-06-08] MEDS: DONEPEZIL HCL 5 MG TAB PO SCH (20:53)
[2021-06-08] MEDS: MIRTAZAPINE 15 MG TAB PO SCH (20:53)
[2021-06-09] VITALS (8 sets, daily range): BP systolic 99–148; BP diastolic 62–94
[2021-06-09] MEDS: PIPERACILLIN/TAZOBACTAM 3.375 GM in SODIUM CHLORIDE 0.9% 50ML 50 ML IV SCH ×4 (00:20→17:44)
[2021-06-09 06:08] LABS: BASOPHILS # (AUTO) 0.1 (0.0-0.1); BASOPHILS % 0.5 % (0.0-1.0); EOSINOPHILS # (AUTO) 0.3 (0.0-0.4); EOSINOPHILS % 2.1 % (0.0-6.0); HEMATOCRIT 30.2 % (38.2-49.6); LYMPHOCYTES # (AUTO) 1.8 (1.0-3.2); MEAN CORPUSCULAR HEMOGLOBIN 26.9 pg (28-32); MEAN CORPUSCULAR HGB CONC 29.8 g/dL (31-35); MEAN CORPUSCULAR VOLUME 90.1 fL (81-99); MONOCYTES # (AUTO) 0.8 (0.2-0.8); MONOCYTES % 5.9 % (4.4-11.3); NEUTROPHILS # (AUTO) 8.8 (2.1-6.9); NEUTROPHILS % 69.5 % (38.7-80.0); PLATELET COUNT 427 x10e3/uL (140-360); RED BLOOD COUNT 3.35 x10e6/uL (4.3-5.7); RED CELL DISTRIBUTION WIDTH 19.9 % (11.7-14.4)
[2021-06-09] MEDS: ARTIFICIAL TEARS (OPTH) 15 ML BTL OP SCH ×3 (06:21→22:00)
[2021-06-09 06:55] LABS: ANION GAP 12.4 mmol/L (8-16); CREATININE, SERUM 0.55 mg/dL (0.72-1.25); POTASSIUM 4.4 mmol/L (3.5-5.1)
[2021-06-09] MEDS: BUDESONIDE/FORMOTEROL FUMARATE 80/4.5MCG 6.9 GM INH AEROSOL IH SCH ×2 (07:30→20:38)
[2021-06-09 08:18] LABS: LYMPHOCYTES % (MANUAL) 16 % (19-48); MONOCYTES % (MANUAL) 9 % (3.4-9.0); MYELOCYTES % (MANUAL) 1 % (0-0); NEUTROPHILS % (MANUAL) 74 % (40-74); PLATELET ESTIMATE ADEQUATE; PLATELET MORPHOLOGY COMMENT NORMAL; RBC MORPHOLOGY COMMENT NORMAL
[2021-06-09] MEDS: TAMSULOSIN HCL 0.4 MG CAP PO SCH (09:32)
[2021-06-09] MEDS: FOLIC ACID 1 MG TAB PO SCH (09:32)
[2021-06-09] MEDS: BALSAM PERU/CASTOR OIL 60 GM OINT...G. TP SCH (09:33)
[2021-06-09] MEDS: MULTIVITAMINS/MINERALS TAB PO SCH (09:33)
[2021-06-09] MEDS: THIAMINE HCL 100 MG TAB PO SCH (09:33)
[2021-06-09] MEDS: SENNOSIDES 8.6 MG TAB PO SCH ×2 (09:33→17:43)
[2021-06-09] MEDS: METOPROLOL TARTRATE 25 MG TAB PO SCH ×2 (09:33→17:43)
[2021-06-09] MEDS: COLLAGENASE 5 GM TUBE TOP SCH (09:33)
[2021-06-09] MEDS: CYANOCOBALAMIN 1,000 MCG TAB PO SCH (09:33)
[2021-06-09] MEDS: HYDRALAZINE HCL 25 MG TAB PO SCH ×3 (09:34→21:00)
[2021-06-09] MEDS: LOSARTAN POTASSIUM 25 MG TAB PO SCH (09:34)
[2021-06-09] MEDS: ACETAMINOPHEN 325 MG TAB PO PRN (15:53)
[2021-06-09] MEDS: MIRTAZAPINE 15 MG TAB PO SCH (21:00)
[2021-06-09] MEDS: DONEPEZIL HCL 5 MG TAB PO SCH (21:00)
[2021-06-10] VITALS (7 sets, daily range): BP systolic 100–119; BP diastolic 60–76
[2021-06-10] MEDS: PIPERACILLIN/TAZOBACTAM 3.375 GM in SODIUM CHLORIDE 0.9% 50ML 50 ML IV SCH ×4 (00:25→17:43)
[2021-06-10] MEDS: ARTIFICIAL TEARS (OPTH) 15 ML BTL OP SCH ×3 (05:55→22:05)
[2021-06-10] MEDS: ACETAMINOPHEN 325 MG TAB PO PRN ×2 (05:57→16:45)
[2021-06-10] MEDS: BUDESONIDE/FORMOTEROL FUMARATE 80/4.5MCG 6.9 GM INH AEROSOL IH SCH ×2 (07:10→19:35)
[2021-06-10] MEDS: HYDRALAZINE HCL 25 MG TAB PO SCH ×2 (09:59→16:44)
[2021-06-10] MEDS: THIAMINE HCL 100 MG TAB PO SCH (10:00)
[2021-06-10] MEDS: TAMSULOSIN HCL 0.4 MG CAP PO SCH (10:00)
[2021-06-10] MEDS: METOPROLOL TARTRATE 25 MG TAB PO SCH ×2 (10:00→16:44)
[2021-06-10] MEDS: SENNOSIDES 8.6 MG TAB PO SCH ×2 (10:00→16:44)
[2021-06-10] MEDS: MULTIVITAMINS/MINERALS TAB PO SCH (10:00)
[2021-06-10] MEDS: COLLAGENASE 5 GM TUBE TOP SCH (10:00)
[2021-06-10] MEDS: CYANOCOBALAMIN 1,000 MCG TAB PO SCH (10:00)
[2021-06-10] MEDS: BALSAM PERU/CASTOR OIL 60 GM OINT...G. TP SCH (10:00)
[2021-06-10] MEDS: FOLIC ACID 1 MG TAB PO SCH (10:00)
[2021-06-10] MEDS: LOSARTAN POTASSIUM 25 MG TAB PO SCH (10:00)
[2021-06-10] MEDS: DONEPEZIL HCL 5 MG TAB PO SCH (22:05)
[2021-06-10] MEDS: MIRTAZAPINE 15 MG TAB PO SCH (22:05)
[2021-06-11] VITALS (7 sets, daily range): BP systolic 110–133; BP diastolic 49–79
[2021-06-11] MEDS: PIPERACILLIN/TAZOBACTAM 3.375 GM in SODIUM CHLORIDE 0.9% 50ML 50 ML IV SCH ×4 (00:45→16:33)
[2021-06-11] MEDS: METOPROLOL TARTRATE 25 MG TAB PO SCH ×3 (00:45→12:56)
[2021-06-11 05:30] LABS: BASOPHILS % 0.2 % (0.0-1.0); EOSINOPHILS # (AUTO) 0.2 (0.0-0.4); EOSINOPHILS % 2.3 % (0.0-6.0); HEMATOCRIT 27.2 % (38.2-49.6); HEMOGLOBIN 8.1 g/dL (14.0-18.0); LYMPHOCYTES % 10.1 % (18.0-39.1); MEAN CORPUSCULAR HEMOGLOBIN 26.9 pg (28-32); MEAN CORPUSCULAR HGB CONC 29.8 g/dL (31-35); MEAN CORPUSCULAR VOLUME 90.4 fL (81-99); MONOCYTES # (AUTO) 0.8 (0.2-0.8); MONOCYTES % 7.8 % (4.4-11.3); NEUTROPHILS # (AUTO) 7.6 (2.1-6.9); NEUTROPHILS % 75.2 % (38.7-80.0); PLATELET COUNT 389 x10e3/uL (140-360); RED BLOOD COUNT 3.01 x10e6/uL (4.3-5.7); RED CELL DISTRIBUTION WIDTH 20.2 % (11.7-14.4)
[2021-06-11 05:52] LABS: ANION GAP 10.9 mmol/L (8-16); CALCIUM 9.2 mg/dL (8.4-10.2); CREATININE, SERUM 0.5 mg/dL (0.72-1.25); POTASSIUM 3.9 mmol/L (3.5-5.1)
[2021-06-11] MEDS: ARTIFICIAL TEARS (OPTH) 15 ML BTL OP SCH ×2 (05:52→13:25)
[2021-06-11] MEDS: BUDESONIDE/FORMOTEROL FUMARATE 80/4.5MCG 6.9 GM INH AEROSOL IH SCH ×2 (08:22→19:11)
[2021-06-11] MEDS ORDERED: FUROSEMIDE INJ 10 MG/ML 4 ML VIAL IV SCH (09:00)
[2021-06-11] MEDS: COLLAGENASE 5 GM TUBE TOP SCH (09:01)
[2021-06-11] MEDS: SENNOSIDES 8.6 MG TAB PO SCH ×2 (09:01→16:33)
[2021-06-11] MEDS: MULTIVITAMINS/MINERALS TAB PO SCH (09:01)
[2021-06-11] MEDS: BALSAM PERU/CASTOR OIL 60 GM OINT...G. TP SCH (09:01)
[2021-06-11] MEDS: TAMSULOSIN HCL 0.4 MG CAP PO SCH (09:01)
[2021-06-11] MEDS: FOLIC ACID 1 MG TAB PO SCH (09:01)
[2021-06-11] MEDS: CYANOCOBALAMIN 1,000 MCG TAB PO SCH (09:01)
[2021-06-11] MEDS: LOSARTAN POTASSIUM 25 MG TAB PO SCH (09:01)
[2021-06-11] MEDS: THIAMINE HCL 100 MG TAB PO SCH (09:01)
[2021-06-11 09:53] LABS: ANISOCYTOSIS MODERATE; HYPOCHROMASIA MODERATE; MICROCYTOSIS SLIGHT; PLATELET ESTIMATE ADEQUATE; PLATELET MORPHOLOGY COMMENT NORMAL; RBC MORPHOLOGY COMMENT ABNORMAL
[2021-06-11] MEDS ORDERED: APIXABAN 5 MG TABLET PO SCH (17:00)
[2021-06-11] MEDS ORDERED: FUROSEMIDE 40 MG TAB PO SCH (17:00)
[2021-06-11] MEDS ORDERED: METOPROLOL TARTRATE 50 MG TAB PO SCH (17:00)
== END 2021-06-11 20:34 | DRG 871 ==
LOC: ER 19:19 → ERHOLD 23:18 → MED/SURG3 06-03 08:29
PROC: 02HV33Z Insertion of Infusion Device into Superior Vena Cava, Percutaneous Approach (ICD-10-PCS; principal; 2021-06-03)
PROC: 30243N1 Transfusion of Nonautologous Red Blood Cells into Central Vein, Percutaneous Approach (ICD-10-PCS; 2021-06-08)
DX: A41.9 Sepsis, unspecified organism (principal); J69.0 Pneumonitis due to inhalation of food and vomit; J96.01 Acute respiratory failure with hypoxia; I50.23 Acute on chronic systolic (congestive) heart failure; E27.40 Unspecified adrenocortical insufficiency; E44.0 Moderate protein-calorie malnutrition; I35.0 Nonrheumatic aortic (valve) stenosis; I25.10 Atherosclerotic heart disease of native coronary artery without angina pectoris; I11.0 Hypertensive heart disease with heart failure; F03.90 Unspecified dementia, unspecified severity, without behavioral disturbance, psychotic disturbance, mood disturbance, and anxiety; E03.9 Hypothyroidism, unspecified; N31.9 Neuromuscular dysfunction of bladder, unspecified; Z86.73 Personal history of transient ischemic attack (TIA), and cerebral infarction without residual deficits; G20 Parkinson's disease; G62.9 Polyneuropathy, unspecified; N40.0 Benign prostatic hyperplasia without lower urinary tract symptoms; R00.1 Bradycardia, unspecified; Z68.23 Body mass index [BMI] 23.0-23.9, adult; R65.20 Severe sepsis without septic shock; Z74.01 Bed confinement status
CPT/HCPCS: 36415; 36569; 71045; 71046; 74230; 80048; 80053; 81001; 82270; 82550; 82553; 82948; 83605; 83880; 84484; 85025; 85610; 85730; 86850; 86900; 86920; 87040; 87086; 93005; 94799; 96361; 99251; 99285; J0456; J0696; J1200; J1885; J1940; J2543; J3411; J7030; J7050; P9016; U0002

== ENCOUNTER 2021-07-28 12:15 | Inpatient (IN) | payer MEDICARE, BC ==
[~2021-07-28] VITALS: Ht 165.1 cm; Wt 63.0 kg
[~2021-07-28 12:15] MED LIST changes: +ACETAMINOPHEN325 M1 PO; +ARICEPT10 MG PO; +FLOMAX0.4 MG PO; +FOLIC ACID0.4 MG PO; +GLUCERNA 1.5 C237 ML; +JEVITY237 ML; +LOSARTAN POTASS25 MG PO; +MULTI-VITAMIN1 EACH PO; +REFRESH PLUS1 EACH; +REMERON15 MG PO; +SENNA8.6 MG PO; +SYMBICORT 80-10.2 GM INH; +TYLENOL325 MG PO; +VITAMIN B-1100 M1 PO; +VITAMIN B-121000 MCG PO
[2021-07-28] MEDS ORDERED: ACETAMINOPHEN 325 MG TAB PO ONE (12:45)
[2021-07-28] MEDS ORDERED: ACETAMINOPHEN 325 MG/10 ML UDC NG PRN (13:00)
[2021-07-28] MEDS ORDERED: PIPERACILLIN/TAZOBACTAM 3.375 GM in SODIUM CHLORIDE 0.9% 50ML 50 ML IV ONE (13:00)
[2021-07-28] MEDS ORDERED: Vancomycin IV 1 GM in SODIUM CHLORIDE 0.9% 250ML 250 ML IV ONE (13:00)
[2021-07-28] MEDS ORDERED: SODIUM CHLORIDE 0.9% 1000ML 1,000 ML IV ONE (13:00)
[2021-07-28 13:02] LABS: BASOPHILS % 0.2 % (0.0-1.0); EOSINOPHILS # (AUTO) 0.5 (0.0-0.4); EOSINOPHILS % 5.2 % (0.0-6.0); HEMATOCRIT 35.2 % (38.2-49.6); HEMOGLOBIN 10.7 g/dL (14.0-18.0); LYMPHOCYTES % 10.4 % (18.0-39.1); MEAN CORPUSCULAR HEMOGLOBIN 29.9 pg (28-32); MEAN CORPUSCULAR HGB CONC 30.4 g/dL (31-35); MEAN CORPUSCULAR VOLUME 98.3 fL (81-99); MONOCYTES # (AUTO) 0.6 (0.2-0.8); MONOCYTES % 5.9 % (4.4-11.3); NEUTROPHILS # (AUTO) 7.6 (2.1-6.9); NEUTROPHILS % 77.6 % (38.7-80.0); PLATELET COUNT 256 x10e3/uL (140-360); RED BLOOD COUNT 3.58 x10e6/uL (4.3-5.7); RED CELL DISTRIBUTION WIDTH 18.5 % (11.7-14.4)
[2021-07-28] MEDS ORDERED: SODIUM CHLORIDE 0.9% 1000ML 1,000 ML ONE (13:05)
[2021-07-28 13:06] LABS: CLARITY,URINE SL CLOUDY (CLEAR); COLOR,URINE YELLOW (YELLOW); KETONES,URINE NEGATIVE (NEGATIVE); LEUKOCYTE ESTERASE ,URINE LARGE (NEGATIVE); NITRITE,URINE NEGATIVE (NEGATIVE); PROTEIN,URINE DIPSTICK NEGATIVE (NEGATIVE); URINE UROBILINOGEN 0.2 mg/dL (0.2 - 1)
[2021-07-28 13:15] LABS: BACTERIA,URINE FEW /HPF; WBC,URINE (MAN) >50 /HPF (0-5)
[2021-07-28 13:18] LABS: INR 1.6; PROTHROMBIN TIME 20.4 seconds (11.9-14.5)
[2021-07-28 13:25] LABS: ALBUMIN 2.3 g/dL (3.5-5.0); ALBUMIN/GLOBULIN RATIO 0.5 (0.8-2.0); ANION GAP 13.1 mmol/L (8-16); CALCIUM 9.8 mg/dL (8.4-10.2); CREATININE, SERUM 0.59 mg/dL (0.72-1.25); POTASSIUM 4.1 mmol/L (3.5-5.1)
[2021-07-28] MEDS ORDERED: SODIUM CHLORIDE FLUSH 10 ML SYR INJ PRN (15:00)
[2021-07-28] MEDS ORDERED: ONDANSETRON HCL INJ 2MG/ML 2ML 2 MG/ML VIAL IV PRN (15:00)
[2021-07-28] MEDS ORDERED: SODIUM CHLORIDE 0.9% 250ML 250 ML ONE (15:33)
[2021-07-28] MEDS: KCL 20MEQ/.9 SOD CHL 1,000 ML IV SCH (16:39)
[2021-07-28 19:54] VITALS: BP 115/64
[2021-07-28 20:00] VITALS: BP 115/64
[2021-07-28] MEDS ORDERED: LASIX10 MG/ML PO (20:05)
[2021-07-28] MEDS ORDERED: FUROSEMIDE40 MG PO (20:06)
[2021-07-28] MEDS ORDERED: FAMOTIDINE20 MG PO (20:07)
[2021-07-28] MEDS ORDERED: ASPIRIN81 MG PO (20:07)
[2021-07-28] MEDS ORDERED: ELIQUIS5 MG PO ×2 (20:09→20:10)
[2021-07-28] MEDS ORDERED: MINOCYCLINE HCL50 MG PO (20:09)
[2021-07-28] MEDS ORDERED: LIPITOR10 MG PO (20:10)
[2021-07-28 20:25] VITALS: BP 115/64
[2021-07-28] MEDS ORDERED: ATORVASTATIN 10 MG TAB PO SCH (23:00)
[2021-07-28] MEDS ORDERED: DONEPEZIL HCL 5 MG TAB PO SCH (23:00)
[2021-07-28] MEDS ORDERED: GUAIFENESIN/DEXTROMETHORPHAN LIQD 5 ML UDC NG PRN (23:00)
[2021-07-28] MEDS ORDERED: DOCUSATE SODIUM 100 MG CAP PO PRN (23:00)
[2021-07-29] MEDS: APIXABAN 5 MG TABLET PO SCH ×2 (00:11→11:00)
[2021-07-29] MEDS: METOPROLOL TARTRATE 25 MG TAB PO SCH ×3 (00:12→17:00)
[2021-07-29] MEDS: PIPERACILLIN/TAZOBACTAM 3.375 GM in SODIUM CHLORIDE 0.9% 50ML 50 ML IV SCH ×5 (00:12→23:35)
[2021-07-29] MEDS: BENZONATATE 100 MG CAP PO SCH ×3 (00:12→15:00)
[2021-07-29] MEDS: KCL 20MEQ/.9 SOD CHL 1,000 ML IV SCH ×2 (04:42→18:21)
[2021-07-29 04:51] LABS: BASOPHILS % 0.3 % (0.0-1.0); EOSINOPHILS # (AUTO) 0.5 (0.0-0.4); EOSINOPHILS % 4.7 % (0.0-6.0); HEMATOCRIT 31.8 % (38.2-49.6); HEMOGLOBIN 9.7 g/dL (14.0-18.0); MEAN CORPUSCULAR HEMOGLOBIN 30.3 pg (28-32); MEAN CORPUSCULAR HGB CONC 30.5 g/dL (31-35); MEAN CORPUSCULAR VOLUME 99.4 fL (81-99); MONOCYTES # (AUTO) 0.5 (0.2-0.8); MONOCYTES % 5.4 % (4.4-11.3); NEUTROPHILS # (AUTO) 7.8 (2.1-6.9); NEUTROPHILS % 78.9 % (38.7-80.0); PLATELET COUNT 225 x10e3/uL (140-360); RED CELL DISTRIBUTION WIDTH 18.4 % (11.7-14.4)
[2021-07-29 05:09] LABS: ANION GAP 9.9 mmol/L (8-16); CALCIUM 9.3 mg/dL (8.4-10.2); CREATININE, SERUM 0.51 mg/dL (0.72-1.25); POTASSIUM 3.9 mmol/L (3.5-5.1)
[2021-07-29 05:44] VITALS: BP 114/73
[2021-07-29 07:45] VITALS: BP 137/70
[2021-07-29] MEDS ORDERED: FUROSEMIDE 40 MG TAB PO SCH (09:00)
[2021-07-29] MEDS ORDERED: FAMOTIDINE 20 MG TAB PO SCH (09:00)
[2021-07-29] MEDS ORDERED: TAMSULOSIN HCL 0.4 MG CAP PO SCH (09:00)
[2021-07-29] MEDS ORDERED: FOLIC ACID 1 MG TAB PO SCH (09:00)
[2021-07-29 11:52] VITALS: BP 140/75
[2021-07-29 16:28] VITALS: BP 140/75
[2021-07-29] MEDS ORDERED: HYDROCODONE/APAP 5MG-325MG TAB PO PRN (18:45)
[2021-07-29 20:24] VITALS: BP 132/71
[2021-07-29 21:00] VITALS: BP 132/71
[2021-07-29] MEDS ORDERED: HYDROCODONE/APAP 5MG-325MG TAB PEG PRN (21:30)
[2021-07-29] MEDS ORDERED: ACETAMINOPHEN 325 MG/10 ML UDC PEG PRN (21:30)
[2021-07-29] MEDS ORDERED: DOCUSATE SODIUM LIQD 100 MG/10 ML UDC NG PRN (21:30)
[2021-07-29] MEDS ORDERED: GUAIFENESIN/DEXTROMETHORPHAN LIQD 5 ML UDC PEG PRN (21:30)
[2021-07-29] MEDS ORDERED: ATORVASTATIN 10 MG TAB PEG SCH (21:32)
[2021-07-29] MEDS: APIXABAN 5 MG TABLET PEG SCH (22:51)
[2021-07-30] MEDS: PIPERACILLIN/TAZOBACTAM 3.375 GM in SODIUM CHLORIDE 0.9% 50ML 50 ML IV SCH ×2 (05:21→12:05)
[2021-07-30 05:37] VITALS: BP 133/66
[2021-07-30] MEDS: KCL 20MEQ/.9 SOD CHL 1,000 ML IV SCH (07:15)
[2021-07-30] MEDS ORDERED: SENNA LAX8.6 MG PO (08:06)
[2021-07-30] MEDS ORDERED: BENZONATATE100 MG PO (08:06)
[2021-07-30] MEDS ORDERED: ZITHROMAX500 MG PO (08:06)
[2021-07-30] MEDS ORDERED: CEFUROXIME500 MG PO (08:06)
[2021-07-30 08:12] VITALS: BP 145/74
[2021-07-30 08:31] VITALS: BP 145/74
[2021-07-30] MEDS ORDERED: FOLIC ACID 1 MG TAB PEG SCH (09:00)
[2021-07-30] MEDS ORDERED: TAMSULOSIN HCL 0.4 MG CAP PEG SCH (09:00)
[2021-07-30] MEDS ORDERED: METOPROLOL TARTRATE 25 MG TAB PEG SCH (09:00)
[2021-07-30] MEDS ORDERED: FAMOTIDINE 20 MG TAB PEG SCH (09:00)
[2021-07-30] MEDS ORDERED: FUROSEMIDE 40 MG TAB PEG SCH (09:00)
[2021-07-30] MEDS: APIXABAN 5 MG TABLET PEG SCH (11:22)
[2021-07-30 12:03] VITALS: BP 148/91
[2021-07-30 15:55] VITALS: BP 114/64
[2021-07-30] MEDS ORDERED: VANCOMYCIN HCL1 GM IV (15:58)
[2021-07-30] MEDS ORDERED: ZOSYN 3.373.375 GM/5 IVP (16:01)
[2021-07-30] MEDS ORDERED: DONEPEZIL HCL 5 MG TAB PEG SCH (21:00)
== END 2021-07-30 16:51 | disposition home or self-care (01) | DRG 871 ==
LOC: ER 12:55 → ERHOLD 15:12 → MED/SURG2 18:30
PROVIDERS: ADMIT Internal Medicine; ATTEND Internal Medicine
DX: A41.9 Sepsis, unspecified organism (principal); L89.154 Pressure ulcer of sacral region, stage 4; J18.9 Pneumonia, unspecified organism; J96.01 Acute respiratory failure with hypoxia; T83.511A Infection and inflammatory reaction due to indwelling urethral catheter, initial encounter; N39.0 Urinary tract infection, site not specified; I48.20 Chronic atrial fibrillation, unspecified; I50.22 Chronic systolic (congestive) heart failure; M86.9 Osteomyelitis, unspecified; G30.9 Alzheimer's disease, unspecified; F02.80 Dementia in other diseases classified elsewhere, unspecified severity, without behavioral disturbance, psychotic disturbance, mood disturbance, and anxiety; G20 Parkinson's disease; I25.10 Atherosclerotic heart disease of native coronary artery without angina pectoris; I11.0 Hypertensive heart disease with heart failure; E78.5 Hyperlipidemia, unspecified; D64.9 Anemia, unspecified; Z91.041 Radiographic dye allergy status; Z74.01 Bed confinement status; Z20.822 Contact with and (suspected) exposure to COVID-19; L89.612 Pressure ulcer of right heel, stage 2; Z51.5 Encounter for palliative care
CPT/HCPCS: 36415; 70450; 71045; 80048; 80053; 81001; 83605; 85025; 85610; 87040; 87086; 93005; 94799; 99251; 99285; J0456; J2543; J3370; J7030; J7050; U0002